=== PATIENT | male | born 1965 | race Caucasian/White ===

== ENCOUNTER 2018-07-03 15:34 | Emergency (ER) | payer MEDICARE, MEDICAID ==
--- NOTE | 2018-07-03 17:00 | UC ---
Cardiac HPI - HPI Summary HPI Summary: Pt c/o left side rib pain. Pt reports that he had URI infection and has been coughing. Pt had LVAD and states that pain is directly above/at LVAD placement. - History of Current Complaint Chief Complaint: UCGeneralIllness Stated Complaint: LEFT SIDE RIB PAIN Time Seen by Provider: 07/03/18 16:47 Hx Obtained From: Patient Onset/Duration: Gradual Onset, Lasting Days, Still Present Timing: Constant Initial Severity: Moderate Current Severity: Moderate Pain Intensity: 7 Chest Pain Location: Left Lateral Character: Dull/Aching Aggravating Factor(s): Exertion Alleviating Factor(s): Position Associated Signs & Symptoms: Positive: Chest Pain - Risk Factors Pulmonary Embolism Risk Factors: Negative Cardiac Risk Factors: CHF, CAD Atrial Fibrillation: Coronary Artery Disease TAD Risk Factors: Negative AMI/ACS Risk Factors: Myocardial Infarction, Hypertension, CHF - Allergy/Home Medications Allergies/Adverse Reactions: Allergies Allergy/AdvReac Type Severity Reaction Status Date / Time Penicillins Allergy Severe Vomiting Verified 07/03/18 15:54 latex Allergy Rash Verified 07/03/18 15:54 BEES Allergy Anaphylatic Uncoded 07/03/18 15:54 Shock Home Medications: Home Medications Albuterol HFA INHALER* [Ventolin HFA Inhaler*] 2 puff Q4HR PRN 07/03/18 [ History Confirmed 07/03/18] Carvedilol TAB* [Coreg TAB*] 12.5 mg BID 07/03/18 [History Confirmed 07/03/18] Divalproex DR TAB(*) [Depakote DR TAB(*)] 1 tab DAILY 07/03/18 [History Confirmed 07/03/18] Escitalopram Oxalate [Lexapro 10 mg] 20 mg DAILY 07/03/18 [History Confirmed 04/12] Gabapentin CAP(*) [Neurontin 100 mg CAP(*)] 2 cap TID 07/03/18 [History Confirmed 07/03/18] Levofloxacin TAB* [Levaquin 750 MG TAB*] 1 tab DAILY 07/03/18 [History Confirmed 07/03/18] Losartan TAB* [Cozaar TAB*] 1 tab DAILY 07/03/18 [History Confirmed 07/03/18] Omeprazole CAP* [Prilosec CAP* 20 MG] 40 mg DAILY 07/03/18 [History Confirmed ] Rosuvastatin (NF) [Crestor (NF)] 40 mg DAILY 07/03/18 [History Confirmed ] Tamsulosin CAP* [Flomax CAP*] 2 cap DAILY 07/03/18 [History Confirmed 07/03/18] amLODIPine TAB* [Norvasc 5 mg TAB*] 1 tab DAILY 07/03/18 [History Confirmed 04/12] PMH/Surg Hx/FS Hx/Imm Hx Previously Healthy: No Cardiovascular History: Cardiac Disease, Pacemaker/ICD, Congestive Heart Failure - Surgical History Surgical History: Yes Surgery Procedure, Year, and Place: LVAD 2010. Defib/pacemaker 2003. Appendix - Family History Known Family History: Positive: Cardiac Disease - Social History Occupation: Disabled Lives: With Family Alcohol Use: None Substance Use Type: None Smoking Status (MU): Never Smoked Tobacco Have You Smoked in the Last Year: No Review of Systems All Other Systems Reviewed And Are Negative: Yes Constitutional: Positive: Fatigue Skin: Positive: Negative Eyes: Positive: Negative ENT: Positive: Sinus Congestion Respiratory: Positive: Cough Cardiovascular: Positive: Chest Pain Gastrointestinal: Positive: Negative Genitourinary: Positive: Negative Motor: Positive: Negative Neurovascular: Positive: Negative Musculoskeletal: Positive: Myalgia - left side rib Neurological: Positive: Weakness Psychological: Positive: Negative Is Patient Immunocompromised?: No Physical Exam Triage Information Reviewed: Yes Appearance: Ill-Appearing Vital Signs: Initial Vital Signs Temp 97.5 F 07/03/18 15:49 Pulse 62 07/03/18 15:49 Resp 20 07/03/18 15:49 Pulse Ox 97 07/03/18 15:49 Vital Signs Reviewed: Yes Eye Exam: Normal ENT: Positive: Nasal congestion Dental Exam: Normal Neck exam: Normal Respiratory Exam: Other - unalbe to ausculatate. LVAD pump masks airway sounds Cardiovascular Exam: Other - unable to ausculatate due to LVAD Abdominal Exam: Normal Musculoskeletal: Positive: Strength Limited @ - generalized weakness, at baseline Neurological Exam: Normal Psychological Exam: Normal Skin Exam: Normal Diagnostics - Laboratory Diagnostic Studies Completed/Ordered: IMPRESSION: Postoperative changes with left ventricular assist device. No definite. pneumonia is identified. - Differential Diagnoses - Chest Pain Differential Diagnosis/HQI/PQRI: Chest Wall - Clinical Impression Provider Diagnoses: chest wall pain Discharge - Sign-Out/Discharge Documenting (check all that apply): Patient Departure All imaging exams completed and their final reports reviewed: Yes - Discharge Plan Condition: Stable Disposition: HOME Patient Education Materials: Chest Wall Pain (ED) Referrals: Felix Perry MD [Primary Care Provider] - As Soon As Possible Additional Instructions: Please follow up with you PCP and medical billing manager as soon as possible. - Billing Disposition and Condition Condition: STABLE Disposition: Home - Attestation Statements Provider Attestation: I was available for consult. This patient was seen by the [facility]. The patient was not presented to, seen by, or examined by me. -Satish
== END 2018-07-03 17:47 | disposition home or self-care (01) ==
LOC: UCCORT 15:34
DX: R07.89 Other chest pain (principal); I50.9 Heart failure, unspecified; I11.0 Hypertensive heart disease with heart failure; I25.10 Atherosclerotic heart disease of native coronary artery without angina pectoris; I25.2 Old myocardial infarction; Z91.030 Bee allergy status; Z95.818 Presence of other cardiac implants and grafts; Z88.0 Allergy status to penicillin; Z91.038 Other insect allergy status
CPT/HCPCS: 71046; 99202; G0463